=== PATIENT | male | born 1990 | race African-American/Black ===

== ENCOUNTER 2019-10-30 15:25 | Emergency (ER) | payer SELFPAY ==
[~2019-10-30] VITALS: Ht 193 cm; Wt 100.0 kg
[2019-10-30 15:50] VITALS: BP 131/59
--- NOTE | 2019-10-30 16:20 | PHYS DOC ---
Past Medical History Past Medical History: No Pertinent History Past Surgical History: No Surgical History Smoking Status: Current Every Day Smoker Alcohol Use: Occasionally General Adult EDM: Chief Complaint: ANKLE PROBLEM HPI: HPI: 21-year-old male presents emergency department today with left-sided ankle pain. He was playing basketball a few days ago when he came down from a dunk and he inverted his left ankle. He sustained injury to the lateral portion of his ankle and has been having trouble when he is going downstairs with pain. He has a sharp shooting nonradiating moderate pain that is worse when he moves his ankle. Has any numbness weakness or tingling. Review of systems negative for chest pain shortness of breath abdominal pain vomiting fevers chills. All other review of systems negative. ED course: 29-year-old male presenting with left-sided ankle injury during basketball. X-rays obtained and unremarkable. Patient has already purchased a ankle wrap. We will have him continue using his ankle wrap and use ice compression and elevation with rest. We will have him follow-up with his PCP in 1 to 2 days. We can have him do an outpatient MRI over the next 3 to 7 days if his symptoms continue. Heart Score: Risk Factors: Risk Factors: DM, Current or recent (<one month) smoker, HTN, HLP, family history of CAD, obesity. Risk Scores: Score 0 - 3: 2.5% MACE over next 6 weeks - Discharge Home Score 4 - 6: 20.3% MACE over next 6 weeks - Admit for Clinical Observation Score 7 - 10: 72.7% MACE over next 6 weeks - Early Invasive Strategies Allergies: Allergies: Allergies Coded Allergies Type Severity Reaction Last Updated Verified No Known Drug Allergies 10/30/19 No Physical Exam: PE: Constitutional: Well developed, well nourished, no acute distress, non-toxic appearance. [] HENT: Normocephalic, atraumatic, bilateral external ears normal, oropharynx moist, no oral exudates, nose normal. [] Eyes: PERRLA, EOMI, conjunctiva normal, no discharge. [] Neck: Normal range of motion, no tenderness, supple, no stridor. [] Cardiovascular:Heart rate regular rhythm, no murmur [] Lungs & Thorax: Bilateral breath sounds clear to auscultation [] Abdomen: Bowel sounds normal, soft, no tenderness, no masses, no pulsatile masses. [] Skin: Warm, dry, no erythema, no rash. [] Back: No tenderness, no CVA tenderness. [] Extremities: The patient's left ankle is tender to palpation in the soft tissues just below the lateral malleolus. He has some swelling. Nontender the bony prominence of the lateral malleolus. Nontender foot. Nontender base of the fifth metatarsal palpable pulse with 2-second cap refill. Nontender proximally. Nontender medial part of the ankle. Neurologic: Alert and oriented X 3, normal motor function, normal sensory function, no focal deficits noted. [] Psychologic: Affect normal, judgement normal, mood normal. [] Current Patient Data: Vital Signs: Vital Signs Date Time Temp Pulse Resp B/P (MAP) Pulse Ox O2 Delivery O2 Flow Rate FiO2 10/30/19 15:50 98.6 67 18 131/59 (83) 96 Room Air 98.6 EKG: EKG: [] Radiology/Procedures: Radiology/Procedures: [] Course & Med Decision Making: Course & Med Decision Making Pertinent Labs and Imaging studies reviewed. (See chart for details) [] Dragon Disclaimer: Dragon Disclaimer: This electronic medical record was generated, in whole or in part, using a voice recognition dictation system. Departure Departure Impression: Primary Impression: Ankle pain, left Disposition: 01 HOME, SELF-CARE Condition: STABLE Patient Instructions: Ankle Sprain Additional Instructions: We will have you follow-up with your doctor in 1 to 2 days. Outpatient MRI of your ankle in the next 3 to 7 days if your symptoms do not improve. Justicifation of Admission Dx: Justifications for Admission: Justification of Admission Dx: N/A MILY MANNING MD Oct 30, 2019 16:19
--- NOTE | 2019-10-30 16:35 | RAD ---
EXAM: AP, oblique and lateral views of the left ankle were submitted for evaluation. DATE: 10/30/2019 4:01 PM INDICATION: Reason: ankle pain / Spl. Instructions: / History: COMPARISON: No Prior FINDINGS: No evidence of acute fracture or dislocation. Midfoot degenerative changes are seen. Ankle mortise is congruent. Talar dome is intact. IMPRESSION: No evidence of acute fracture or dislocation. Electronically signed by: Sina Angelo MD (10/30/2019 4:32 PM) [facility]
== END 2019-10-30 17:56 | disposition home or self-care (01) ==
LOC: ER 15:25
DX: M25.572 Pain in left ankle and joints of left foot (principal); G89.11 Acute pain due to trauma; F17.200 Nicotine dependence, unspecified, uncomplicated; X50.9XXA Other and unspecified overexertion or strenuous movements or postures, initial encounter; Y93.67 Activity, basketball; Y92.89 Other specified places as the place of occurrence of the external cause; Y99.8 Other external cause status
CPT/HCPCS: 73610; 99283